=== PATIENT | female | born 2000 | race Two or more races ===

== ENCOUNTER 2023-12-13 18:19 | Emergency (ER) | payer MEDICAID, OTHER ==
[~2023-12-13 18:19] MED LIST: BUPR300T28; INSUPOW; TRAZ1TAB12
== END 2023-12-13 19:02 | disposition left against medical advice (07) ==
LOC: ER 18:19
DX: N93.9 Abnormal uterine and vaginal bleeding, unspecified (principal); Z53.21 Procedure and treatment not carried out due to patient leaving prior to being seen by health care provider